=== PATIENT | female | born 2000 | race Asian ===

== ENCOUNTER 2021-03-10 14:30 | Outpatient (CLI) | payer OTHER ==
[~2021-03-10] VITALS: Ht 162.6 cm; Wt 99.8 kg
== END 2021-03-10 23:00 | disposition home or self-care (01) ==
LOC: INF 14:30
PROVIDERS: ATTEND Nurse Practitioner Family
DX: Z23 Encounter for immunization (principal); U07.1 COVID-19
CPT/HCPCS: 96365; M0244

== ENCOUNTER 2022-10-27 09:48 | Outpatient (CLI) | payer BC | END 2022-10-27 17:00 | disposition home or self-care (01) | LOC: RAD 09:48 | PROVIDERS: ATTEND Nurse Practitioner Family | DX: M79.605 Pain in left leg (principal) ==